=== PATIENT | male | born 1970 | race Caucasian/White ===

== ENCOUNTER 2021-12-21 17:01 | Observation (INO) | payer OTHER ==
[2021-12-21] MEDS ORDERED: Ketorolac Tromethamine 30 MG/ML VIAL ONE (18:15)
[2021-12-21 18:17] LABS: #Eosinphils 0.2 10x3/uL (0.0-0.5); #Monocytes 1.3 10x3/uL (0.0-1.1); %Basophils 0.4 % (0.0-2.0); %Eosinophils 1.8 % (0.0-6.0); %Lymphocytes 21.4 % (18.0-47.0); %Monocytes 11.8 % (0.0-10.0); %Neutrophils 64.3 % (40.0-75.0); Hemoglobin 13.6 g/dL (13.5-17.5); Mean Corpuscular HGB CONC 33.3 g/dL (32.0-36.0); Mean Corpuscular Hemoglobin 30.2 pg (27.0-33.0); Mean Corpuscular Volume 90.7 fl (81.2-95.1); Platelet Count 367 10x3/uL (150-450); RBC Distribution Width 13.6 % (11.5-14.5); White Blood Cell (WBC) Count 10.9 10x3/uL (3.5-10.5)
[2021-12-21 18:37] LABS: ALT (SGPT) 14 U/L (8-55); AST (SGOT) 18 U/L (5-34); Albumin 3.9 g/dL (3.5-5.0); Alkaline Phosphatase 26 U/L (40-110); Anion Gap 14 mmol/L (10-20); BUN (Urea Nitrogen) 7 mg/dL (8.9-20.6); Bilirubin, Total 0.8 mg/dL (0.2-1.2); Calc. Creatinine Clearance 0 mL/min (70-130); Calcium 9.1 mg/dL (7.8-10.44); Carbon Dioxide 24 mmol/L (22-29); Chloride 99 mmol/L (98-107); Globulin 3.5 g/dL (2.4-3.5); Glucose 88 mg/dL (70-105); Lipase 13 U/L (8-78); Magnesium 1.9 mg/dL (1.6-2.6); Potassium 3.4 mmol/L (3.5-5.1); Protein, Total 7.4 g/dL (6.0-8.3); Sodium 134 mmol/L (136-145)
[2021-12-21 20:35] LABS: SARS-CoV-2 NAA Rapid Test Not Detected (NotDetected)
[2021-12-21] MEDS ORDERED: Piperacillin/Tazobactam 4.5 GM VIAL ONE (20:47)
[2021-12-21] MEDS ORDERED: HYDROcodone/Acetaminophen 5/325 mg Tablet ONE (20:56)
[2021-12-22] MEDS ORDERED: Ondansetron PF 4 MG/2 ML Vial IVP PRN (01:05)
[2021-12-22] MEDS ORDERED: Acetaminophen 325 MG TAB PO PRN (01:06)
[2021-12-22] MEDS: NS 0.9% w/ 40 MEQ KCL 1,000 ML IV SCH ×2 (01:17→08:23)
[2021-12-22] MEDS ORDERED: Sodium Chloride 0.9% 100 ML ONE (02:07)
[2021-12-22] MEDS: Piperacillin/Tazobactam 3.375 GM in Sodium Chloride 0.9% 100 ML IVPB SCH ×2 (02:09→08:15)
[2021-12-22] MEDS: Potassium Chloride 20 MEQ in Premix Bag 1 BAG IVPB SCH ×3 (03:08→06:16)
[2021-12-22] MEDS: Morphine 4 MG/ML VIAL SLOW IVP PRN ×3 (03:09→18:30)
[2021-12-22] MEDS: Vancomycin HCl 1 GM in Sodium Chloride 0.9% 250 ML 250 ML IVPB SCH ×2 (04:33→18:19)
[2021-12-22 04:40] LABS: #Eosinphils 0.2 10x3/uL (0.0-0.5); #Neutrophils 4.3 10x3/uL (1.5-8.4); %Basophils 0.4 % (0.0-2.0); %Eosinophils 3.1 % (0.0-6.0); %Lymphocytes 22.6 % (18.0-47.0); %Monocytes 13.6 % (0.0-10.0); Hemoglobin 13.3 g/dL (13.5-17.5); Mean Corpuscular Volume 90.8 fl (81.2-95.1); Mean Platelet Volume 10.3 fl (7.4-10.4); Platelet Count 351 10x3/uL (150-450); RBC Distribution Width 13.5 % (11.5-14.5); Red Blood Cell (RBC) Count 4.44 10x6/uL (4.32-5.72); White Blood Cell (WBC) Count 7.1 10x3/uL (3.5-10.5)
[2021-12-22 04:59] LABS: Anion Gap 13 mmol/L (10-20); BUN (Urea Nitrogen) 6 mg/dL (8.9-20.6); Calc. Creatinine Clearance 131 mL/min (70-130); Calcium 8.6 mg/dL (7.8-10.44); Carbon Dioxide 23 mmol/L (22-29); Chloride 104 mmol/L (98-107); Glucose 84 mg/dL (70-105); Potassium 3.9 mmol/L (3.5-5.1); Sodium 136 mmol/L (136-145)
[2021-12-22] MEDS ORDERED: Bupivacaine 0.25% HCL 30 ML VIAL ONE (08:37)
[2021-12-22] MEDS ORDERED: EPINEPHrine 1 MG/ML AMP ONE (08:37)
[2021-12-22] MEDS ORDERED: Fentanyl 250 MCG/5 ML VIAL ONE (10:56)
[2021-12-22] MEDS ORDERED: Ondansetron PF 4 MG/2 ML Vial ONE (10:56)
[2021-12-22] MEDS ORDERED: PROPOFOL 20 ML ONE (10:56)
[2021-12-22] MEDS ORDERED: Glycopyrrolate 0.2 MG/ML 5 ML SYRINGE ONE (10:56)
[2021-12-22] MEDS ORDERED: Lidocaine 1% PF 5 ML VIAL ONE ×2 (10:56)
[2021-12-22] MEDS ORDERED: Midazolam HCl 2 mg/2 ml Vial ONE (10:56)
[2021-12-22] MEDS ORDERED: Ketorolac Tromethamine 30 MG/ML VIAL ONE (10:56)
[2021-12-22] MEDS ORDERED: Rocuronium Bromide 10 MG/ML (10ML VIAL) ONE (10:56)
[2021-12-22] MEDS ORDERED: PHENYLEPHRINE-NS 100 MCG/ML 10 ML SYRINGE ONE (11:21)
[2021-12-22 11:56] VITALS: BMI 30.8
[2021-12-22] MEDS: Acetaminophen/Codeine 30-300mg Tablet PO PRN ×2 (14:14→21:00)
[2021-12-22] MEDS ORDERED: Enoxaparin Sodium 40 MG/0.4 ML SYRINGE SC SCH (21:00)
[2021-12-22] MEDS ORDERED: Famotidine/PF 20 mg/2ml Vial SLOW IVP SCH (21:45)
[2021-12-22] MEDS ORDERED: Calcium Carbonate 500 MG ChewTAB PO PRN (21:46)
[2021-12-23] MEDS: Vancomycin HCl 1 GM in Sodium Chloride 0.9% 250 ML 250 ML IVPB SCH (04:12)
[2021-12-23] MEDS: Morphine 4 MG/ML VIAL SLOW IVP PRN (04:27)
[2021-12-23] MEDS ORDERED: Aspirin 81 mg Enteric Coated Tablet PO SCH (09:00)
[2021-12-23] MEDS ORDERED: Lisinopril 20 MG TAB PO SCH (09:00)
[2021-12-23] MEDS ORDERED: Hydrochlorothiazide 25 MG TAB PO SCH (09:00)
[2021-12-23] MEDS ORDERED: Venlafaxine HCl XR 75 MG CAP PO SCH (09:00)
[2021-12-23] MEDS ORDERED: Famotidine/PF 20 mg/2ml Vial SLOW IVP SCH (09:15)
[2021-12-23] MEDS: Acetaminophen/Codeine 30-300mg Tablet PO PRN (09:32)
[2021-12-23 11:51] VITALS: BP 134/69; TEMP 98.7
== END 2021-12-23 13:39 | disposition home or self-care (01) ==
LOC: EEVIPCON 17:01 → CSHERS 17:01 → INTOOBSV 12-22 00:14 → CSHTELE 12-22 00:14
PROVIDERS: ADMIT Family Medicine; ATTEND Nurse Practitioner Family
PROC: 0FT44ZZ Resection of Gallbladder, Percutaneous Endoscopic Approach (ICD-10-PCS; principal; 2021-12-22)
DX: K80.12 Calculus of gallbladder with acute and chronic cholecystitis without obstruction (principal); Z79.82 Long term (current) use of aspirin; I10 Essential (primary) hypertension; I25.10 Atherosclerotic heart disease of native coronary artery without angina pectoris; D75.839 Thrombocytosis, unspecified; M79.7 Fibromyalgia; I73.9 Peripheral vascular disease, unspecified; Z87.891 Personal history of nicotine dependence; Z20.822 Contact with and (suspected) exposure to COVID-19
CPT/HCPCS: 36415; 71045; 74177; 80048; 80053; 83690; 83735; 84484; 85025; 87040; 88304; 93005; 96372; 96375; C1713; G0378; J0171; J1650; J1885; J2250; J2270; J2405; J2543; J2704; J3010; J3370; J3480; J3490; J7050; S0020; S0028; U0002